=== PATIENT | female | born 1985 | race Caucasian/White ===

== ENCOUNTER 2016-03-22 14:54 | Outpatient (CLI) | END 2016-03-22 14:55 | disposition home or self-care (01) ==

== ENCOUNTER 2016-03-23 08:00 | Outpatient (CLI) | payer OTHER | END 2016-03-23 08:01 | disposition home or self-care (01) | DX: Z11.3 Encounter for screening for infections with a predominantly sexual mode of transmission (principal) ==

== ENCOUNTER 2016-03-28 12:18 | Outpatient (CLI) | payer OTHER | END 2016-03-28 12:19 | disposition home or self-care (01) | DX: Z20.828 Contact with and (suspected) exposure to other viral communicable diseases (principal) ==

== ENCOUNTER 2016-04-19 09:16 | Outpatient (CLI) | payer OTHER | END 2016-04-19 09:17 | disposition home or self-care (01) | DX: Z36 Encounter for antenatal screening of mother (principal) ==

== ENCOUNTER 2016-05-30 07:33 | Outpatient (CLI) | payer OTHER | END 2016-05-30 07:34 | disposition home or self-care (01) | DX: Z34.82 Encounter for supervision of other normal pregnancy, second trimester (principal); O32.1XX0 Maternal care for breech presentation, not applicable or unspecified ==

== ENCOUNTER 2016-06-29 08:52 | Outpatient (CLI) | payer OTHER | END 2016-06-29 08:53 | disposition home or self-care (01) | DX: Z36 Encounter for antenatal screening of mother (principal) ==

== ENCOUNTER 2016-09-06 13:44 | Outpatient (CLI) | payer OTHER | END 2016-09-06 13:45 | disposition home or self-care (01) | LOC: LAB.R 13:44 | PROVIDERS: ATTEND Obstetrics & Gynecology | DX: Z36 Encounter for antenatal screening of mother (principal) | CPT/HCPCS: 87081 ==

== ENCOUNTER 2016-10-03 10:22 | Inpatient (IN) | payer OTHER ==
[2016-10-03] MEDS ORDERED: fentaNYL 100 MCG/2 ML VIAL IVP PRN (11:34)
[2016-10-03] MEDS ORDERED: PENICILLIN G POTASSIUM 5,000,000 UNIT in SODIUM CHLORIDE 0.9% MINIBAG 100 ML IV SCH (11:34)
[2016-10-03] MEDS ORDERED: SODIUM CHLORIDE FLUSH 0.9% 10 ML SYRINGE IVP PRN (11:34)
[2016-10-03] MEDS: LACTATED RINGERS 1,000 ML IV SCH ×2 (12:10→17:57)
[2016-10-03 12:23] LABS: BASOPHILS % (AUTO) 0.4 %; EOSINOPHILS # (AUTO) 0.1 10^3/uL (0.0-0.7); EOSINOPHILS % (AUTO) 0.9 %; HCT - HEMATOCRIT 39.9 % (37.0-47.0); LYMPHOCYTES # (AUTO) 1.5 10^3/uL (1.5-3.5); LYMPHOCYTES % (AUTO) 14.8 %; MEAN CORPUSCULAR HEMOGLOBIN 30.2 pg (27.0-31.0); MEAN CORPUSCULAR VOLUME 86.2 fL (81.0-99.0); MEAN PLATELET VOLUME 9.4 fL (7.9-10.8); MONOCYTES # (AUTO) 0.7 10^3/uL (0.0-1.0); MONOCYTES % (AUTO) 6.6 %; NEUTROPHILS # (AUTO) 7.8 10^3/uL (1.5-6.6); NEUTROPHILS % (AUTO) 77.3 %; NUCLEATED RED BLOOD CELLS AUTO 0.1 /100WBC; RED BLOOD COUNT 4.63 10^6/uL (4.20-5.40); RED CELL DISTRIBUTION WIDTH 13.9 % (12.0-15.0); UNCORRECTED WHITE BLOOD COUNT 10.1 x10^3/uL; WHITE BLOOD COUNT 10.1 x10^3/uL (4.8-10.8)
[2016-10-03] MEDS ORDERED: fent/BUPIV 2 MCG/0.125% 250 ML EP ONE (15:32)
[2016-10-03] MEDS ORDERED: ROPIVACAINE 0.2% PF 10 ML VIAL EPI ONE (16:00)
[2016-10-03] MEDS: PENICILLIN G POTASSIUM 2,500,000 UNIT in SODIUM CHLORIDE 0.9% 100ML 100 ML IV SCH ×2 (16:08→19:41)
--- NOTE | 2016-10-03 16:39 | PROVIDER PROGRESS NOTE ---
Labor Progress Note - Uterine Monitoring Contraction Frequency (min/apart): Q 4min Contraction Intensity: positive: Mild to moderate Uterine Resting Tone: positive: Soft - Monitoring Monitor Mode: positive: External ultrasound Heart Rate Baseline: 135-140 Heart Rate Variability: positive: Moderate (6-25 bmp) Decelerations: positive: Late, Variable Strip Review: positive: Category II - Vaginal Exam Dilation (in cm): 5 Effacement (%): 70% Station: 0 Cervical Position: Midposition - Labor Progress Note Labor Progress Note/Additional Text: AROM Clear but Bloody
[2016-10-03] MEDS: ONDANSETRON 4 MG/2 ML VIAL IVP PRN (17:02)
[2016-10-03] MEDS ORDERED: OXYTOCIN/LACTATED RINGERS 250 ML IV SCH (18:00)
--- NOTE | 2016-10-03 21:29 | PROVIDER PROGRESS NOTE ---
Labor Progress Note - Uterine Monitoring Uterine Monitoring Mode: positive: External toco, Palpation Contraction Frequency (min/apart): Q 2.5-3 Min Contraction Intensity: positive: Moderate Uterine Resting Tone: positive: Soft - Monitoring Monitor Mode: positive: External ultrasound Heart Rate Baseline: 135 - 140 Heart Rate Variability: positive: Moderate (6-25 bmp) Accelerations: positive: Present, 15x15 Decelerations: positive: Variable Strip Review: positive: Category I - Vaginal Exam Dilation (in cm): 6cm Effacement (%): 60% Station: 0 Cervical Position: Midposition - Labor Progress Note Labor Progress Note/Additional Text: Epidural adequate but not dense. Slower than usual progression and now augmented w pitocin at 5 mu. Clinically pelvis seems adequate for 8 - 8.5 fetus. Expect more rapid progress in next several hours.
[2016-10-03] MEDS ORDERED: LIDOCAINE 1% 50 ML MDV ONE (23:29)
[2016-10-03] MEDS ORDERED: MINERAL OIL LIGHT 10 ML MC ONE (23:29)
[2016-10-03] MEDS ORDERED: miSOPROStol 200 MCG TABLET ONE (23:29)
[2016-10-04] MEDS: LACTATED RINGERS 1,000 ML IV SCH (00:41)
[2016-10-04] MEDS: PENICILLIN G POTASSIUM 2,500,000 UNIT in SODIUM CHLORIDE 0.9% 100ML 100 ML IV SCH (00:41)
[2016-10-04] MEDS: ONDANSETRON 4 MG/2 ML VIAL IVP PRN (00:41)
--- NOTE | 2016-10-04 01:25 | PROVIDER PROGRESS NOTE ---
Labor Progress Note - Uterine Monitoring Uterine Monitoring Mode: positive: Palpation Contraction Frequency (min/apart): Q2.5min Contraction Intensity: positive: Moderate to strong Uterine Resting Tone: positive: Soft - Monitoring Monitor Mode: positive: External ultrasound Heart Rate Baseline: 120-130 Heart Rate Variability: positive: Marked (>25 bmp) Accelerations: positive: Present, 15x15 Decelerations: positive: Early Strip Review: positive: Category I - Vaginal Exam Dilation (in cm): 10 Effacement (%): 100% Station: 0, 1 Cervical Position: Anterior - Labor Progress Note Labor Progress Note/Additional Text: Pt pushing w good effort.
[2016-10-04] MEDS ORDERED: diphenhydrAMINE 25 MG CAPSULE PO PRN (02:33)
[2016-10-04] MEDS ORDERED: HYDROCORTISONE/PRAMOXINE 10 GM PR PRN (02:33)
[2016-10-04] MEDS ORDERED: OXYTOCIN/LACTATED RINGERS 250 ML IV ONE (02:33)
[2016-10-04] MEDS ORDERED: WITCH HAZEL/GLYCERIN 1 EACH MED..PAD TOP PRN (02:33)
[2016-10-04] MEDS ORDERED: IBUPROFEN 600 MG TABLET PO SCH (03:00)
[2016-10-04] MEDS ORDERED: LACTATED RINGERS 1,000 ML IV SCH (03:00)
[2016-10-04] MEDS: NAPROXEN 250 MG TABLET PO SCH ×3 (09:52→21:57)
[2016-10-04] MEDS: DOCUSATE SODIUM 100 MG CAPSULE PO SCH ×2 (09:52→21:57)
[2016-10-04] MEDS: ACETAMINOPHEN 325 MG TABLET PO PRN ×2 (09:53→19:09)
[2016-10-04] MEDS: HYDROcod/ACETAM 5/325 MG TABLET PO PRN ×3 (11:40→21:57)
--- NOTE | 2016-10-04 13:24 | HISTORY & PHYSICAL EXAMINATION ---
DATE OF ADMISSION: 10/03/2016 DIAGNOSES 1. Term , 39 weeks 5 days. 2. Labor. 3. Group B Strep positive. 4. Maternal blood type Rh negative. HISTORY: The patient is a 30-year-old 2, para 1-0-0-1, woman at 39 weeks 5 days' gestation based on an EDC of 10/05/2016, who comes complaining of regular uterine contractions for over 6 hours. She began [place] yesterday at 8:00 in the evening, initially mild and building in intensity. She has no suspicion of ruptured membranes, abnormal discharge, fevers, chills or vaginal bleeding. She has no signs or symptoms of preeclampsia. She has had regular care at [facility] with a total of 11 visits. During the course of care, she appeared to have some skin changes of the breasts that were examined, and essentially not found to be indicative of mastitis. Reference Dr. Brown's notes on 21 June. STANDARD LABS: Blood type A-. Antibody screen negative. Rubella immune. RPR nonreactive. Urine culture negative. HIV negative. Quad screen normal. Glucola challenge test normal at 85. GBS culture positive. PAST OBSTETRIC HISTORY: Past delivery was at 39 weeks with 3 hours of labor to deliver a 3316 g female that had retained placenta that necessitated manual extraction. PAST SURGICAL HISTORY: Cholecystectomy. PAST MEDICAL HISTORY: No chronic disease history. ALLERGIES: NO KNOWN DRUG ALLERGIES, MAY BE SENSITIVE TO IBUPROFEN. MEDICATIONS 1. vitamins. 2. Iron. SOCIAL HISTORY: . Denies drug, tobacco or alcohol use. Stay at home mom. FAMILY HISTORY: No chromosomal or inheritable disease history. Family history of hypertension, stroke, and coronary artery disease. REVIEW OF SYSTEMS CONSTITUTIONAL: Negative. HEENT: Negative. CARDIAC: Patient states she had a murmur in adolescence and this has not been symptomatic. Echocardiogram done with no significant pathology. GASTROINTESTINAL: Negative. GENITOURINARY: Denies STD history. No abnormal Pap smear history. MUSCULOSKELETAL: Negative. NEUROLOGIC: Negative. SKIN: Negative. LYMPHATICS: Negative. PHYSICAL EXAMINATION GENERAL: Patient lying comfortably in bed, alert and oriented. VITAL SIGNS: Temp 98.1, pulse 96, blood pressure 129/87, respiratory rate 18, oxygen saturation 99%. HEENT: EOMI. No icterus. Supple neck, no lymphadenopathy. Dentition in good repair. No goiter. LUNGS: Clear in all quadrants. CARDIAC: Regular. Grade 2 systolic ejection murmur. No gallop or diastolic component. ABDOMEN: No hepatosplenomegaly. No right upper quadrant tenderness. UTERUS: Consistent with 39-40 weeks. Estimated weight 8 to 8.5 pounds. Vertex presentation. EXTERNAL GENITALIA: No lesions. VAGINA: No blood or discharge. CERVIX: 4 cm (nursing exam). EXTREMITIES: Nonedematous. NEUROLOGIC: Normal reflexes. No deficit. LABS: Admission labs pending. ASSESSMENT: This is a term by reliable dating methods who presents in latent labor progressing towards the active phase. Baseline cervical exam several days ago was 1, and progress is evident. Currently, contractions are about every 3 minutes and the strip is category 1. Group B strep prophylaxis is as needed. PLAN 1. Begin GBS prophylaxis with penicillin. 2. Patient desires epidural. JOB #: [id number] EXT JOB #:[id number] BRYON
[2016-10-05] MEDS: HYDROcod/ACETAM 5/325 MG TABLET PO PRN ×3 (01:01→09:35)
[2016-10-05] MEDS: ACETAMINOPHEN 325 MG TABLET PO PRN (05:29)
[2016-10-05] MEDS: NAPROXEN 250 MG TABLET PO SCH (05:30)
--- NOTE | 2016-10-05 07:43 | Discharge Plan ---
Discharge Plan Disposition: 01 Home, Self Care Condition: Good Diet: Regular Activity Restrictions: Activity as Tolerated Shower Restrictions: No Driving Restrictions: No Weight Bearing: Full Weight No Smoking: If you smoke, Please STOP! Call for help. Follow-up with: Thea Linton MD [Primary Care Provider] - Michael Pino MD [Provider Admit Priv/Credential] -
[2016-10-05 07:46] VITALS: BP 114/67
[2016-10-05] MEDS: DOCUSATE SODIUM 100 MG CAPSULE PO SCH (09:35)
--- NOTE | 2016-10-08 07:34 | OPERATIVE REPORT ---
DATE OF SURGERY: PREDELIVERY DIAGNOSES 1. Term and spontaneous labor at 39 weeks. 2. GBS maternal colonization. 3. Maternal blood type Rh negative. 4. Maternal Obesity POSTDELIVERY DIAGNOSES 1. Successful vaginal delivery of a living male infant. 2. Mild shoulder dystocia. 3. Nuchal cord. PROCEDURE: Manually assisted vaginal delivery including Geeta maneuver and suprapubic pressure; repair of minor second-degree midline laceration. RUBBER COMPOUNDER FORMULATOR: Michael Pino MD, FACOG. ANESTHESIA: Epidural, Luis Abrams SOLARIS ADMINISTRATOR; Odette, local lidocaine 1% 10 mL. COMPLICATIONS: None. BLOOD LOSS: 350. DRAINS: None. FINDINGS: Patient achieved completion at 0010 hours and began to push at approximately 0050 hours. At 0212 hours, a living male was born, weighing 8 lbs 7.3 oz and scoring Apgars of 6/9. There was no trauma or evident congenital anomalies. Placenta was spontaneously delivered intact with no evidence of infection. There was a small amount of adherent clot covering 10% of the placental plate. Could not say for sure if this was residue or evidence of abruption. Cord was 3 -vessel configuration and around baby's head once. Female genital tract was inspected, and there was a 3 cm laceration in the midline of the vulva that was only a centimeter and a half deep. There was no encroachment on any of the external anal sphincter muscles or rectum. TECHNIQUE: Patient began to push around 1 o'clock with good effort. She was well coached by nursing and her . She slowly brought the head to the perineum on the OA position. Push and stretch method was used, as well as mineral oil. At 0212 hours there was an atraumatic . Immediately after , the head retracted tautly against the perineum. Nuchal cord was discovered and reduced. Initial attempt at delivery of the anterior shoulder was unsuccessful , and it was elected to move to the Geeta maneuver. Nursing staff lowered the bed and took position for the Geeta. Both legs were hyperflexed at the hip and suprapubic applied. This allowed delivery of the anterior shoulder. The shoulders were fairly large, and the posterior shoulder delivery resulted in a second-degree laceration. was placed on maternal abdomen. Total interval from crowing to complete delivery roughly 38 seconds. The perineal wound was explored and then 10 mL of lidocaine placed. A cross stitch was placed with 3-0 Vicryl, followed by interrupted stitches of 3-0 Vicryl to close the wound. Shortly thereafter, the placenta was delivered intact and then inspected. Uterus responded well to massage and Pitocin. Mother, child, and father all bonded together well. Note, a total of 4 doses of penicillin have been given during the course of the labor. JOB #: [id number] EXT JOB #:[id number] BRYON
--- NOTE | 2016-10-08 10:00 | DISCHARGE SUMMARY ---
DATE OF ADMISSION: 10/03/2016 DATE OF DISCHARGE: 10/05/2016 DIAGNOSES: 1. Term , 39 weeks 5 days. 2. Spontaneous labor. 3. Maternal group B strep colonization. 4. Maternal blood type Rh negative. 5. Maternal obesity. BMI 42. PROCEDURE: Vaginal delivery over intact perineum; Geeta maneuver and suprapubic pressure; minor m idline vulvovaginal laceration repair. COMPLICATIONS: Shoulder dystocia, mild. HISTORY: The patient is a 30-year-old 2, para 1, 0-0-1, woman at 39 weeks 5 days [facility] with an EDC of 10/05/2016. She presented with regular uterine contractions and evidence cervi luis change. Baseline labs: Blood type A negative, antibody screen negative. Rubella immune. RPR nonreactive. Urin e culture negative. HIV negative. Quad screen negative. Glucola challenge test normal at 85, and GBS culture positive. Prior was delivered at 39 weeks and was remarkable for retained placenta necessitating manu al extraction. The patient has no chronic disease history and post-surgical history only for a cholecystectomy. Kinjal mccall typewritten [facility] and [facility]. HOSPITAL COURSE: The patient was admitted and penicillin GBS protocol started. Contractions fell out which allowed us to get 2 doses of antibiotics on board, after which at 1600 membranes were ruptured. She had slow progress into the active phase and moved from 4 cm at admission to finally completion a t roughly midnight. During the active phase there were a series of variable decelerations and occasio nal lates. Physician remained in-house. Upon reaching completion the patient began to push with good effort. At 0212 hours patient crowned and immediately there was a positive turtle sign. Nuchal cord was reduc ed. We moved rapidly to Geeta procedure with suprapubic pressure to dislodge the shoulder. Total delay between delivery of head and body was 38 seconds. The fetus was placed on maternal abdomen, cord doubly clamped and transected. 's were ------ ref erence nursing notes. Inspection of the perineum found a shallow vulvovaginal laceration which was uneventfully repaired af ter lidocaine injection. Placenta was delivered intact. Postoperatively the patient recovered well, rapidly advancing to full diet and activity. Preoperative hemoglobin was 14.0. She nursed without difficulty. On hospital day #3, day #1, patient strongly desired discharge. She was capable of self ca re and care. Warning signs and call back instructions were reviewed. DISCHARGE MEDICATIONS: 1. Motrin 800 t.i.d. x7 days. 2. [place] 325 1 to 2 tabs q. 4 hours p.r.n. breakthrough pain. [facility]. 19:9:00 JOB #: [id number] EXT JOB #:[id number]
== END 2016-10-05 10:15 | disposition home or self-care (01) | DRG 775 ==
LOC: WFO 10:22 → OB 10:26 → WFO 11:04 → OB 11:05
PROVIDERS: ADMIT Obstetrics & Gynecology; ATTEND Obstetrics & Gynecology
PROC: 10907ZC Drainage of Amniotic Fluid, Therapeutic from Products of Conception, Via Natural or Artificial Opening (ICD-10-PCS; 2016-10-03)
PROC: 10E0XZZ Delivery of Products of Conception, External Approach (ICD-10-PCS; principal; 2016-10-04)
PROC: 0KQM0ZZ Repair Perineum Muscle, Open Approach (ICD-10-PCS; 2016-10-04)
DX: O99.824 Streptococcus B carrier state complicating childbirth (principal); Z68.41 Body mass index [BMI] 40.0-44.9, adult; O66.0 Obstructed labor due to shoulder dystocia; O76 Abnormality in fetal heart rate and rhythm complicating labor and delivery; O69.81X0 Labor and delivery complicated by cord around neck, without compression, not applicable or unspecified; O70.1 Second degree perineal laceration during delivery; O26.893 Other specified pregnancy related conditions, third trimester; O99.214 Obesity complicating childbirth; E66.9 Obesity, unspecified; O43.893 Other placental disorders, third trimester; Z37.0 Single live birth; Z3A.39 39 weeks gestation of pregnancy; Z67.11 Type A blood, Rh negative; Z90.49 Acquired absence of other specified parts of digestive tract
CPT/HCPCS: 85025; 99212